=== PATIENT | female | born 1995 | race American Indian/Alaskan Native ===

== ENCOUNTER 2016-12-29 00:06 | Emergency (ER) | payer OTHER ==
[2016-12-29 00:48] VITALS: BP 131/87
== END 2016-12-29 01:25 | disposition left against medical advice (07) ==
LOC: ED 00:06
DX: N89.8 Other specified noninflammatory disorders of vagina (principal); Z53.21 Procedure and treatment not carried out due to patient leaving prior to being seen by health care provider